=== PATIENT | female | born 1985 | race Caucasian/White ===

== ENCOUNTER 2018-05-23 11:02 | Inpatient (IN) | payer OTHER ==
[~2018-05-23 11:02] MED LIST: PHENYLephrine (100 MCG/ML) 10ML SYG
[2018-05-23] MEDS ORDERED: CARBOPROST 250 MCG INJ IM ×2 (11:30→17:00)
[2018-05-23] MEDS ORDERED: CEFAZOLIN 2 GM/50 ML (PMX) 50 ML IVPB (11:30)
[2018-05-23] MEDS ORDERED: METHYLERGONOVINE 0.2 MG INJ IM ×2 (11:30→17:00)
[2018-05-23] MEDS ORDERED: OXYTOCIN 30 UNITS/LR 500 ML IV ×2 (11:30→17:00)
[2018-05-23] MEDS ORDERED: MISOPROSTOL 200 MCG TAB PR ×2 (11:30→17:00)
[2018-05-23] MEDS: LACTATED RINGER'S 1,000 ML IV ×2 (11:31→19:16)
[2018-05-23 11:47] LABS: ADD MAN DIFF? NO
[2018-05-23 11:49] LABS: WHITE BLOOD COUNT 6.4 10^3/ul (4.8-10.8)
[2018-05-23 11:49] LABS: BASOPHILS % 0.5 % (0.0-2.0); EOSINOPHILS # 0.1 10^3/ul (0.0-0.5); EOSINOPHILS % 0.8 % (0.0-7.0); HEMATOCRIT 35.9 % (37.0-47.0); HEMOGLOBIN 12.1 g/dl (12.0-16.0); LYMPHOCYTES # 1.4 10^3/ul (0.8-2.9); LYMPHOCYTES % 22.4 % (15.0-51.0); MEAN CORPUSCULAR HEMOGLOBIN 31.3 pg (29.0-33.0); MEAN CORPUSCULAR HGB CONC 33.7 g/dl (32.0-37.0); MEAN PLATELET VOLUME 9.4 fl (7.4-10.4); MONOCYTE # 0.7 10^3/ul (0.3-0.9); MONOCYTES % 10.7 % (0.0-11.0); NEUTROPHIL # 4.1 10^3/ul (1.6-7.5); NEUTROPHILS % 64.2 % (39.0-77.0); PLATELET COUNT 210 10^3/UL (140-415); RED BLOOD COUNT 3.86 10^6/ul (4.20-5.40); RED CELL DISTRIBUTION WIDTH 12.6 % (11.5-14.5)
[2018-05-23 12:09] LABS: INR 0.88; PT RATIO 0.9
[2018-05-23 12:10] LABS: PARTIAL THROMBOPLASTIN TIME 28.1 Sec (23.0-35.0)
[2018-05-23] MEDS ORDERED: morphine SULFATE/PF (10 MG/10 ML) INJ (12:38)
[2018-05-23] MEDS ORDERED: OXYTOCIN 10 UNIT INJ (12:39)
[2018-05-23 12:43] LABS: HEPATITIS B SURFACE ANTIGEN NEGATIVE (NEGATIVE)
[2018-05-23] MEDS ORDERED: ONDANSETRON 4 MG INJ (12:51)
[2018-05-23] MEDS ORDERED: KETOROLAC 30 MG INJ (12:51)
[2018-05-23] MEDS ORDERED: METOCLOPRAMIDE 10 MG INJ (12:51)
[2018-05-23] MEDS ORDERED: DEXAMETHASONE 4 MG/ML 1 ML INJ (12:51)
[2018-05-23] MEDS ORDERED: EPHEDrine SULFATE 50 MG/5 ML SYG IV (13:30)
[2018-05-23] MEDS ORDERED: morphine 2 MG INJ IV (13:30)
[2018-05-23] MEDS ORDERED: HYDROCODONE/APAP (5/325) TAB PO (13:30)
[2018-05-23] MEDS ORDERED: METOCLOPRAMIDE 10 MG INJ IV (13:30)
[2018-05-23] MEDS ORDERED: MEPERIDINE 25 MG INJ IV (13:30)
[2018-05-23] MEDS ORDERED: ACETAMINOPHEN 500 MG TAB PO (13:30)
[2018-05-23] MEDS ORDERED: NALBUPHINE HCL (10 MG/1 ML) INJ IV (13:30)
[2018-05-23] MEDS ORDERED: OXYCODONE/ACETAMINOPHEN (5/325) TAB PO (13:30)
[2018-05-23] MEDS ORDERED: HYDROmorphONE 1 MG/5 ML IV SYRINGE IV ×2 (13:30)
[2018-05-23] MEDS ORDERED: ALBUMIN HUMAN 5% 250 ML IV (13:30)
[2018-05-23] MEDS ORDERED: NALOXONE (0.4 MG/ML) INJ IV (13:30)
[2018-05-23] MEDS ORDERED: DIPHENHYDRAMINE 50 MG INJ IV ×2 (13:30)
[2018-05-23] MEDS ORDERED: HYDROmorphONE 0.5 MG/0.5 ML SYG IV ×2 (13:30)
[2018-05-23] MEDS ORDERED: ONDANSETRON 4 MG INJ IV ×2 (13:30)
[2018-05-23] MEDS ORDERED: FENTAnyl 50 MCG/ML VIAL IV ×2 (13:30)
[2018-05-23] MEDS: OXYTOCIN 30 UNITS/LR 500 ML IV ×2 (13:49→19:54)
[2018-05-23 15:40] LABS: RAPID PLASMA REAGIN NONREACTIVE (NR)
[2018-05-23] MEDS: SENNA/DOCUSATE NA (8.6MG/50MG) TAB PO (21:25)
[2018-05-24] MEDS: LACTATED RINGER'S 1,000 ML IV ×4 (03:16→23:08)
[2018-05-24] MEDS: KETOROLAC 30 MG INJ IV ×2 (04:23→12:11)
[2018-05-24 06:19] LABS: ADD MAN DIFF? NO
[2018-05-24 06:26] LABS: BASOPHILS % 0.3 % (0.0-2.0); EOSINOPHILS % 0.3 % (0.0-7.0); HEMATOCRIT 34.9 % (37.0-47.0); HEMOGLOBIN 11.7 g/dl (12.0-16.0); LYMPHOCYTES # 1.6 10^3/ul (0.8-2.9); LYMPHOCYTES % 14.2 % (15.0-51.0); MEAN CORPUSCULAR HEMOGLOBIN 31.6 pg (29.0-33.0); MEAN CORPUSCULAR HGB CONC 33.5 g/dl (32.0-37.0); MEAN CORPUSCULAR VOLUME 94.3 fl (82.0-101.0); MEAN PLATELET VOLUME 9.6 fl (7.4-10.4); MONOCYTES % 8.5 % (0.0-11.0); NEUTROPHIL # 8.7 10^3/ul (1.6-7.5); PLATELET COUNT 231 10^3/UL (140-415); RED CELL DISTRIBUTION WIDTH 12.4 % (11.5-14.5)
[2018-05-24 06:26] LABS: WHITE BLOOD COUNT 11.5 10^3/ul (4.8-10.8)
[2018-05-24] MEDS: SENNA/DOCUSATE NA (8.6MG/50MG) TAB PO ×2 (09:55→21:33)
[2018-05-24] MEDS: IBUPROFEN 800 MG TAB PO ×2 (14:00→21:34)
[2018-05-24] MEDS: OXYCODONE/ACETAMINOPHEN (5/325) TAB PO (17:53)
[2018-05-25] MEDS: LACTATED RINGER'S 1,000 ML IV (05:11)
[2018-05-25] MEDS: IBUPROFEN 800 MG TAB PO ×3 (05:32→22:23)
[2018-05-25] MEDS: SENNA/DOCUSATE NA (8.6MG/50MG) TAB PO ×2 (09:19→21:15)
[2018-05-25] MEDS: OXYCODONE/ACETAMINOPHEN (5/325) TAB PO ×2 (09:20→16:00)
[2018-05-26] MEDS: IBUPROFEN 800 MG TAB PO ×2 (05:45→13:56)
[2018-05-26] MEDS: SENNA/DOCUSATE NA (8.6MG/50MG) TAB PO (08:21)
[2018-05-26] MEDS: DIPHTH/TET/ACEL PERTUSS (ADULT) 0.5 ML VIAL IM* (09:31)
[2018-05-26] MEDS: LANOLIN HPA 1 PKT TOP (12:27)
== END 2018-05-26 17:30 | disposition home or self-care (01) | DRG 788 ==
LOC: L-D 11:02 → PP1 16:03
PROVIDERS: Obstetrics & Gynecology
PROC: 10D00Z1 Extraction of Products of Conception, Low, Open Approach (ICD-10-PCS; principal; 2018-05-23 12:30)
DX: O34.219 Maternal care for unspecified type scar from previous cesarean delivery (principal); Z3A.39 39 weeks gestation of pregnancy; Z37.0 Single live birth
CPT/HCPCS: 85025; 85610; 85730; 86592; 86850; 86900; 86901; 87340; 99464